=== PATIENT | female | born 1985 | race Caucasian/White ===

== ENCOUNTER 2020-01-10 11:55 | Emergency (ER) | payer BC, SELFPAY ==
--- NOTE | 2020-01-10 12:03 | ED.FEMALEGU ---
HPI - Female Genitourinary General Chief complaint: Urogenital-Female Stated complaint: poss uti Time Seen by Provider: 01/10/20 12:03 Source: patient and RN notes reviewed History of Present Illness HPI Narrative: Patient is a 34-year-old female who presents the urgent care with complaints of a possible UTI. Patient states her symptoms started approximately 5 days ago with some fatigue. Patient states that she chalked it up to her severe anxiety and depression . Patient states approximately 2 days ago she started with a urinary frequency, urgency, lower suprapubic pressure and decreased amounts of urine. Patient states that her nurse practitioner friend believes she has a urinary tract infection . Patient denies of any low back pain but has had some upper back pain which she was then told by her nurse practitioner friend that the infection was traveling to her upper back . Patient denies of any nausea, vomiting, fever. States that the Azo improved her symptoms in the last 24 hours. No other acute complaints. No acute distress noted. Patient aware of the plan of care. Some parts of this dictation were generated by voice recognition software and may contain typographical and/or grammatical inaccuracies. Related Data Home Medications Medication Instructions Recorded Confirmed alprazolam 2 mg PO TID PRN 01/10/20 01/10/20 bupropion HCl 150 mg PO DAILY 01/10/20 01/10/20 lamotrigine 150 mg PO DAILY 01/10/20 01/10/20 medroxyprogesterone 150 mg IM Q3M 01/10/20 01/10/20 vilazodone [Viibryd] 20 mg PO DAILY 01/10/20 01/10/20 Allergies Allergy/AdvReac Type Severity Reaction Status Date / Time Sulfa (Sulfonamide Allergy Unknown Verified 01/10/20 12:36 Antibiotics) Review of Systems Review of Systems: Narrative: CONSTITUTIONAL: Denies fever, chills, or sweats. EYES: Denies visual changes, redness, or discharge. ENT: Denies rhinorrhea, congestion, sore throat, or otalgia. CARDIOVASCULAR: Denies chest pain, palpitations, or edema. RESPIRATORY: Denies cough or dyspnea. GASTROINTESTINAL: Denies abdominal pain, nausea, vomiting, or diarrhea. GENITOURINARY: Reports of urinary frequency, urgency, dysuria and suprapubic pressure SKIN: Denies rash or itching. MUSCULOSKELETAL: Reports of intermittent upper back pain NEUROLOGIC: Denies headache, numbness, or weakness. All other systems reviewed are negative, except as documented in HPI. PMFSH Comments At the time of my signature, I reviewed and agree with the nursing past medical, surgical, social, and family history. There is no relevant family history pertinent to the patient complaint. Exam Narrative: Exam Narrative: GENERAL: This is a well-nourished, well-developed patient, in no apparent distress. HEAD: normocephalic, atraumatic. EYES: PERRL. Sclera clear/white. Vision is grossly intact. EARS: External ears normal NOSE: External nose normal with no obvious nasal discharge, nares without redness, no rhinorrhea. THROAT: Mucous membranes moist NECK: Neck supple GASTROINTESTINAL: Abdomen soft, non-tender, nondistended. SKIN: warm, intact with no suspicious lesions or rash, good texture and turgor. NEURO: awake, alert, and oriented to person, place and time. There were no obvious focal neurologic abnormalities. EXTREMITIES: No clubbing, cyanosis, or edema. BACK: Negative bilateral CVA tenderness Course Vital Signs Vital signs: Vital Signs Temperature 98.2 F 01/10/20 12:10 Pulse Rate 91 01/10/20 12:10 Respiratory Rate 18 01/10/20 12:10 Blood Pressure 111/68 01/10/20 12:10 Pulse Oximetry 99 01/10/20 12:10 Temperature 98.2 F 01/10/20 12:20 Pulse Rate 91 01/10/20 12:20 Respiratory Rate 18 01/10/20 12:20 Blood Pressure 111/68 01/10/20 12:20 Pulse Oximetry 99 01/10/20 12:20 Reviewed MDM - Female Genitourinary MDM Narrative Medical decision making narrative: Reviewed lab results with the patient. She is aware that her urine analysis is n
[2020-01-10 12:10] VITALS: BP 111/68; PULSE 91; RESP 18; TEMP 36.8; O2SAT 99
[2020-01-10 12:20] VITALS: BP 111/68; PULSE 91; RESP 18; TEMP 36.8; O2SAT 99
== END 2020-01-10 12:45 | disposition home or self-care (01) ==
PROVIDERS: Emergency Provider Nurse Practitioner Family; PCP Family Medicine
DX: N39.0 Urinary tract infection, site not specified (principal); F41.9 Anxiety disorder, unspecified; F32.9 Major depressive disorder, single episode, unspecified
CPT/HCPCS: 81003; 87086; 87088; 99213; G0463